=== PATIENT | male | born 1975 | race Hispanic/Latino ===

== ENCOUNTER 2019-10-23 06:53 | Outpatient (CLI) | payer OTHER, SELFPAY ==
[2019-10-23 18:20] LABS: #Eosinphils 0.3 thou/uL (0.0-0.7); #Lymphocytes 3.8 thou/uL (1.20-3.40); #Monocytes 0.8 thou/uL (0.11-0.59); #Neutrophils 7.7 thou/uL (1.40-6.50); %Basophils 0.3 % (0.0-1.0); %Eosinophils 2.2 % (0.0-10.0); %Monocytes 6.6 % (0.0-10.0); %Neutrophils 60.9 % (42.0-75.0); Hemoglobin 16.6 g/dL (14.0-18.0); Mean Corpuscular HGB CONC 34.3 g/dL (32.0-36.0); Mean Corpuscular Hemoglobin 29.3 pg (27.0-31.0); Mean Corpuscular Volume 85.4 fL (78.0-98.0); Mean Platelet Volume 7.9 fL (7.4-10.4); Platelet Count 214 thou/uL (130-400); RBC Distribution Width 11.9 % (11.5-14.5); Red Blood Cell (RBC) Count 5.65 mill/uL (4.70-6.10); White Blood Cell (WBC) Count 12.7 thou/uL (4.8-10.8)
[2019-10-23 18:23] LABS: Anion Gap 11 mmol/L (10-20); BUN (Urea Nitrogen) 11 mg/dL (8.9-20.6); Calc. Creatinine Clearance 0 mL/min (70-130); Calcium 9.1 mg/dL (7.8-10.44); Carbon Dioxide 28 mmol/L (22-29); Chloride 105 mmol/L (98-107); Estimated GFR-MDRD Greater than 90; Glucose 86 mg/dL (70-105); Potassium 3.7 mmol/L (3.5-5.1); Sodium 140 mmol/L (136-145)
[2019-10-24 13:11] LABS: SARS-CoV-2 MS2 Positive; SARS-CoV-2 N Gene Negative; SARS-CoV-2 S Gene Negative; SARS-CoV-2 orf1ab Negative
== END 2019-10-23 06:54 | disposition home or self-care (01) ==
LOC: LABBT 06:53
PROVIDERS: ATTEND Specialist
DX: Z01.812 Encounter for preprocedural laboratory examination (principal); Z11.59 Encounter for screening for other viral diseases; K40.90 Unilateral inguinal hernia, without obstruction or gangrene, not specified as recurrent
CPT/HCPCS: 80048; 85025; 87635; U0003

== ENCOUNTER 2019-10-27 07:40 | Day surgery (SDC) | payer OTHER ==
[2019-10-20 12:24] VITALS: BMI 25.8
--- NOTE | 2019-10-27 08:12 | HP ---
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 He has had pain in his right groin since, he has had a bulge. He wears a truss. Using the solution director, I have interviewed him. He does not have any family with him. He desires right inguinal hernia repair and I have recommended laparoscopic robot mesh repair right inguinal hernia and if found intraoperatively left, although cannot detect that clinically and he does not have any pain on the left. ALLERGIES: NONE. SOCIAL HISTORY: Tobacco cessation 2 months ago, use prior to that. Alcohol, none. PAST SURGICAL HISTORY: Noncontributory. PAST MEDICAL HISTORY: Noncontributory. REVIEW OF SYSTEMS: Noncontributory. FAMILY HISTORY: Noncontributory. PHYSICAL EXAMINATION: VITAL SIGNS: Weight 182 pounds, height 67 inches, 28 BMI. Blood pressure 124/83, pulse 78, temperature 99 degrees. HEAD, EARS, EYES, NOSE, AND THROAT: Unremarkable. LUNGS: Clear to auscultation. CARDIAC: Regular rate and rhythm without murmur or gallop. ABDOMEN: Soft and nontender. He has a right inguinal hernia on standing. His left groin without evident hernia. ASSESSMENT AND PLAN: Right inguinal hernia. Recommendations as above. Risks of infection, bleeding, reoperation, recurrence of hernia, chronic pain discussed, questions answered. We will ask our office staff to discuss with him financial issues and arrange outpatient surgery in the future. Job ID: [id number]
[2019-10-27] MEDS ORDERED: Ketorolac Tromethamine 30 MG/ML VIAL ONE (08:17)
[2019-10-27] MEDS ORDERED: Acetaminophen 500 MG TAB ONE (08:18)
[2019-10-27] MEDS ORDERED: Gabapentin 300 MG CAP ONE (08:18)
[2019-10-27] MEDS ORDERED: Bupivacaine 0.25% HCL 30 ML VIAL ONE (09:40)
[2019-10-27] MEDS ORDERED: Lidocaine 1% w/Epinephrine 1:100K 20 ML VIAL ONE (09:40)
[2019-10-27] MEDS ORDERED: Fentanyl 100 MCG/2 ML VIAL ONE ×2 (09:44→12:43)
[2019-10-27] MEDS ORDERED: Midazolam HCl 2 mg/2 ml Vial ONE (09:53)
[2019-10-27] MEDS ORDERED: Dexamethasone 20 MG/5 ML VIAL ONE (11:07)
[2019-10-27] MEDS ORDERED: Glycopyrrolate 0.2 MG/ML 5 ML SYRINGE ONE (11:07)
[2019-10-27] MEDS ORDERED: Lidocaine 1% PF 5 ML VIAL ONE ×2 (11:07)
[2019-10-27] MEDS ORDERED: PROPOFOL 200 MG/20 ML VIAL ONE (11:07)
[2019-10-27] MEDS ORDERED: Ondansetron PF 4 MG/2 ML Vial ONE (11:07)
[2019-10-27] MEDS ORDERED: Rocuronium Bromide 10 MG/ML (10ML VIAL) ONE (11:07)
[2019-10-27] MEDS ORDERED: HYDROcodone/Acetaminophen 5/325 mg Tablet ONE (14:27)
--- NOTE | 2019-10-27 15:24 | OP ---
DATE OF PROCEDURE: 10/27/2019 PREOPERATIVE DIAGNOSIS: Right inguinal hernia, indirect. POSTOPERATIVE DIAGNOSIS: Right inguinal hernia, indirect. PROCEDURE PERFORMED: Robot laparoscopic large mesh repair of right inguinal hernia. ANESTHESIA: General, local with 0.5% Marcaine 30 mL, mixed with 1% Xylocaine with epinephrine 20 mL, total volume used. NOTE: The patient's right testicle was excessively mobile and fell into the abdominal cavity during the dissection, requiring careful dissection of the peritoneal flap. The testicle was placed back in the inguinal canal, and 3-0 Vicryl pexy suture applied to the orifice to maintain scrotal positioning and postoperatively it rolled high. DESCRIPTION OF PROCEDURE: The patient was taken to the operating room where under general anesthesia, abdomen was clipped of hair, prepared with ChloraPrep, and draped in routine fashion. Rey catheter was placed at the beginning of procedure and removed at the end. Local anesthetic was infiltrated in the skin and subcutaneous tissue about all port sites. Supraumbilical incision made and pneumoperitoneum to 15 mmHg was obtained with a Veress needle, replacing with an 11-mm balloon port. Right lateral and left lateral incisions were made slightly above the umbilical level and 8-mm port was placed. The patient was placed in slight Trendelenburg and robot was docked and robot inguinal hernia repair undertaken. Flap of peritoneum dissected free from the anterior superior iliac spine on the right to the midline. An indirect hernia sac was noted. Left side without hernia. The flap dissected free on the right laterally and medially, identified the Tejas ligament, dissecting the peritoneum from the cord structures. As noted above, testicle was excessively mobile and fell into the field. It had to place back in the inguinal canal, carefully dissecting the sac off the cord structures for at least 8 cm. To maintain testicular position of the scrotum, a 3-0 Vicryl pexy suture was placed as described above. Once adequately dissected and good hemostasis noted, mesh was secured to the Tejas ligament with interrupted suture of 3-0 Vicryl and anterior abdominal wall just to the right inferior epigastric vessels with 3-0 Vicryl suture. Peritoneal flap was then closed with continuous suture of 2-0 V-Loc suture. There was a defect in the peritoneum, closed with 2-0 V-Loc suture. The patient tolerated the procedure well. Good hernia repair noted. Good hemostasis was noted. All instruments were removed. Pneumoperitoneum reduced. All incisions were approximated with interrupted subdermal 4-0 Monocryl and Withee glue applied. The patient tolerated the procedure well. Job ID: [id number]
== END 2019-10-27 15:40 | disposition home or self-care (01) ==
LOC: SDC 07:40
PROVIDERS: ATTEND Specialist
PROC: 0YU54JZ Supplement Right Inguinal Region with Synthetic Substitute, Percutaneous Endoscopic Approach (ICD-10-PCS; principal; 2019-10-27)
DX: K40.90 Unilateral inguinal hernia, without obstruction or gangrene, not specified as recurrent (principal); Z87.891 Personal history of nicotine dependence
CPT/HCPCS: C1781; J0690; J1100; J1885; J2001; J2250; J2405; J2704; J3010; S0020